=== PATIENT | female | born 1985 | race Caucasian/White ===

== ENCOUNTER 2017-03-29 16:30 | Emergency (ER) | payer BC ==
[2017-03-29] MEDS ORDERED: Tetan/Diph/Pertus SYR(Tdap)* 0.5 ML SYR(BOOSTRIX) use SYR IM ONE (17:41)
[2017-03-29] MEDS ORDERED: Lidocaine 2% PF * 5 ML VIAL INJ ONE (17:41)
[2017-03-29 18:38] VITALS: BP 129/93
--- NOTE | 2017-03-29 18:45 | UC ---
Skin Complaint HPI - HPI Summary HPI Summary: WAS TREATING HER DECK LAST NIGHT AND SUSTAINED A SPLINTER UNDER HER LEFT 3RD FINGER NAIL. UNKNOWN DATE OF LAST TETANUS. - History of Current Complaint Chief Complaint: [facility] Time Seen by Provider: 03/29/17 17:35 Stated Complaint: SOFT TISSUE Hx Obtained From: Patient Hx Last Menstrual Period: 4 WEEKS AGO Onset/Duration: Sudden Onset, Lasting Hours, Still Present Timing: Constant Onset Severity: Moderate Current Severity: Moderate Pain Intensity: 4 Pain Scale Used: 0-10 Numeric Location: Discrete - UNDER LEFT 3RD FINGER NAIL Character: Pain Aggravating Factor(s): Touch Alleviating Factor(s): Nothing Associated Signs & Symptoms: Positive: Tenderness - Allergy/Home Medications Allergies/Adverse Reactions: Allergies Allergy/AdvReac Type Severity Reaction Status Date / Time No Known Allergies Allergy Verified 03/29/17 16:35 Home Medications: Home Medications Control* 1 tab PO DAILY 03/29/17 [History Confirmed 03/29/17] Ibuprofen TAB* [Advil TAB*] 200 mg PO ONCE PRN 03/29/17 [History Confirmed 03/29] Review of Systems Constitutional: Negative Skin: Other - SPLINTER Respiratory: Negative Cardiovascular: Negative Gastrointestinal: Negative All Other Systems Reviewed And Are Negative: Yes PMH/Surg Hx/FS Hx/Imm Hx Previously Healthy: Yes - Surgical History Surgical History: Yes Surgery Procedure, Year, and Place: WISDOM TEETH - Family History Known Family History: Positive: Hypertension - Social History Alcohol Use: Occasionally Substance Use Type: None Smoking Status (MU): Never Smoked Tobacco - Immunization History Most Recent Tetanus Shot: UNKNOWN Physical Exam Triage Information Reviewed: Yes Appearance: Well-Appearing, No Pain Distress, Well-Nourished Vital Signs: Initial Vital Signs Temp 98 F 03/29/17 16:31 Pulse 72 03/29/17 16:31 Resp 16 03/29/17 16:31 BP 114/77 03/29/17 16:31 Pulse Ox 100 03/29/17 16:31 Vital Signs Reviewed: Yes Eyes: Positive: Conjunctiva Clear ENT: Positive: Hearing grossly normal Neck: Positive: Supple Respiratory: Positive: No respiratory distress, No accessory muscle use Cardiovascular: Positive: Pulses Normal Abdomen Description: Positive: Soft Musculoskeletal: Positive: No Edema Neurological: Positive: Alert Psychological: Positive: Age Appropriate Behavior Skin: Positive: Other - 1CM SPLINTER UNDER NAIL LEFT 3RD FINGER Course/Dx - Course Course Of Treatment: DIGITAL BLOCK PERFORMED USING 2% LIDOCAINE. SPLINTER SUCCESSFULLY REMOVED IN ENTIRETY USING 11 BLADE AND SPLINTER FORCEPS. - Diagnoses Provider Diagnoses: SUBUNGUAL SPLINTER REMOVAL - LEFT 3RD FINGER Discharge - Discharge Plan Condition: Stable Disposition: HOME Prescriptions: Cephalexin CAP* [Keflex 500 CAP*] 1,000 mg PO BID #20 cap Patient Education Materials: Soft Tissue Foreign Body (ED) Referrals: Zonia Mckeon MD [Primary Care Provider] - If Needed Additional Instructions: SPLINTER REMOVED WITHOUT DIFFICULTY. TAKE ANTIBIOTICS TO PREVENT INFECTION. SEEK FOLLOW-UP IF YOU DEVELOP SPREADING REDNESS OF THE SKIN, PURULENT DRAINAGE, FEVER, INCREASED PAIN OR ANY OTHER CONCERNING SYMPTOMS. TETANUS IMMUNIZATION GIVEN (TDAP): You have been given an immunization against tetanus. Please record this in your records. In general, a booster is needed only once every 10 years. The tetanus shot protects against tetanus or "lockjaw," which is a complication of certain wound infections (the tetanus shot cannot protect against the actual infection). The immunization site may become warm and red due to local reaction. If this occurs, apply warm compresses and take aspirin or ibuprofen to reduce inflammation and discomfort. Return for evaluation if the reaction becomes severe.
== END 2017-03-29 18:45 | disposition home or self-care (01) ==
LOC: UCEAST 16:30
DX: S60.453A Superficial foreign body of left middle finger, initial encounter (principal); W45.8XXA Other foreign body or object entering through skin, initial encounter; Y93.89 Activity, other specified; Y92.008 Other place in unspecified non-institutional (private) residence as the place of occurrence of the external cause; Z23 Encounter for immunization
CPT/HCPCS: 90471; 90715; 99202; G0463

== ENCOUNTER 2022-04-06 10:11 | Inpatient (IN) ==
[2022-04-06] MEDS ORDERED: Lactated Ringers 1000 ml BAG 1,000 ML IV ONE (10:48)
[2022-04-06] MEDS ORDERED: Buffered Lidocaine 1% SYRIN 1 ml INTRADERM ONE (10:48)
[2022-04-06] MEDS ORDERED: miSOPROStol 100 mcg TAB VAGINAL ONE (11:29)
[2022-04-06 12:38] LABS: Urine Benzodiazepine Screen None Detected (None Detect); Urine Cannabinoids Screen None Detected (None Detect); Urine Opiates Screen None Detected (None Detect)
[2022-04-06] MEDS ORDERED: Oxytocin in LR 20,000 MILLI.UNIT/1,000 ML BAG IV SCH (17:15)
[2022-04-06] MEDS: Lactated Ringers 1000 ml BAG 1,000 ML IV SCH (17:31)
[2022-04-06 18:04] LABS: ABS Eosinophils 0.1 10^3/ul (0-0.6); ABS Lymphocytes 2.1 10^3/ul (1.0-4.8); ABS Monocytes 0.5 10^3/ul (0-0.8); ABS Neutrophils 6.3 10^3/ul (1.5-7.7); Eosinophil % 0.9 %; Hematocrit 35 % (35-47); Hemoglobin 11.9 g/dL (12.0-16.0); Lymphocyte % 23.2 %; Mean Corpuscular HGB Conc 34 g/dL (31-36); Mean Corpuscular Hemoglobin 30 pg (27-31); Mean Corpuscular Volume 87 fL (80-97); Mean Platelet Volume 7.7 fL (7.4-10.4); Nucleated Red Blood Cells % 0.1; Platelet Count 209 10^3/uL (150-450); Red Blood Count 4.01 10^6 /uL (3.70-4.87); Red Cell Distribution Width 15 % (10-15); White Blood Count 9.1 10^3/uL (3.5-10.8)
[2022-04-07] MEDS: Lactated Ringers 1000 ml BAG 1,000 ML IV SCH ×2 (01:50→05:01)
[2022-04-07] MEDS ORDERED: OBEPIDURAL (200 ML) 200 ML EPIDURAL ONE (04:13)
[2022-04-07] MEDS ORDERED: Lidocaine 1% w EPI 1:200,000 SDV 30 ML VIAL ONE ×2 (04:13→18:14)
[2022-04-07 05:42] LABS: Urine Appearance Cloudy; Urine Bilirubin Negative (Negative); Urine Blood 2+ (Negative); Urine Color Yellow; Urine Glucose Negative (Negative); Urine Ketones Trace (Negative); Urine Nitrite Negative (Negative); Urine Protein 1+(30 mg/dL) (Negative); Urine Specific Gravity 1.023 (1.002-1.030); Urine Urobilinogen Negative (Negative)
[2022-04-07] MEDS ORDERED: fentaNYL 100 mcg/2 ml 50 MCG/ML VIAL ONE (05:42)
[2022-04-07] MEDS ORDERED: Lidocaine 2% w/ EPI 1:200,000 MPF 20 ML SDV VIAL ONE (05:42)
[2022-04-07] MEDS ORDERED: Sodium Citrate/Citric Acid LIQ 15 ML UDC PO PRN (05:54)
[2022-04-07] MEDS ORDERED: Lactated Ringers 1000 ml BAG 1,000 ML IV ONE (05:54)
[2022-04-07] MEDS ORDERED: Lactated Ringers 1000 ml BAG 500 ML IV PRN (05:54)
[2022-04-07] MEDS ORDERED: Phenylephrine 40 mcg/mL 10mL (400mcg) SYRINGE IV PUSH PRN ×2 (05:54)
[2022-04-07] MEDS ORDERED: OBEPIDURAL (200 ML) 200 ML EPIDURAL SCH (06:00)
[2022-04-07] MEDS ORDERED: Lactated Ringers 1000 ml BAG 1,000 ML IV SCH ×3 (06:00→15:00)
[2022-04-07 06:10] LABS: Urine Bacteria Absent (Absent); Urine Red Blood Cell 3+(>10/hpf) (Absent); Urine Squamous Epithelial Cell Present (Absent); Urine White Blood Cell 2+(11-20/hpf) (Absent)
[2022-04-07] MEDS ORDERED: Glycerin ADULT 2.4 gm SUPP PR PRN (14:39)
[2022-04-07] MEDS ORDERED: Oxytocin in LR 20,000 MILLI.UNIT/1,000 ML BAG IV SCH (14:45)
[2022-04-07] MEDS: Dibucaine 1% OINT 28.35 GM TUBE PR PRN (17:31)
[2022-04-07] MEDS: Witch Hazel PAD JAR TOPICAL PRN (17:31)
[2022-04-08] MEDS: Witch Hazel PAD JAR TOPICAL PRN (03:15)
[2022-04-08] MEDS: Dibucaine 1% OINT 28.35 GM TUBE PR PRN (03:15)
[2022-04-08 06:36] LABS: ABS Eosinophils 0.1 10^3/ul (0-0.6); ABS Lymphocytes 2.3 10^3/ul (1.0-4.8); ABS Monocytes 0.9 10^3/ul (0-0.8); ABS Neutrophils 13.1 10^3/ul (1.5-7.7); Eosinophil % 0.3 %; Hematocrit 27 % (35-47); Hemoglobin 9.6 g/dL (12.0-16.0); Lymphocyte % 14.2 %; Mean Corpuscular HGB Conc 36 g/dL (31-36); Mean Corpuscular Hemoglobin 31 pg (27-31); Mean Corpuscular Volume 87 fL (80-97); Mean Platelet Volume 7.7 fL (7.4-10.4); Platelet Count 184 10^3/uL (150-450); Red Cell Distribution Width 15 % (10-15); White Blood Count 16.4 10^3/uL (3.5-10.8)
[2022-04-09 09:27] VITALS: BP 131/87
== END 2022-04-09 15:35 | disposition home or self-care (01) | DRG 542 ==
LOC: MCHOBOUT 10:11 → MCHOB 11:35
PROVIDERS: ADMIT Midwife; ATTEND Midwife

== ENCOUNTER 2023-11-11 13:07 | Inpatient (IN) ==
[2023-11-11] MEDS ORDERED: Lidocaine 1% VIAL 10 MG/ML 30 ML VIAL INJ PRN (14:00)
[2023-11-11] MEDS ORDERED: Buffered Lidocaine 1% SYRIN 1 ml INTRADERM ONE (14:00)
[2023-11-11] MEDS ORDERED: Prochlorperazine 5 mg/ml 2 ml VIAL (10 mg) IV PRN (14:00)
[2023-11-11] MEDS: miSOPROStol 100 mcg TAB PO ONE (14:17)
[2023-11-11 15:02] LABS: Hematocrit 34.6 % (35-45); Hemoglobin 12.1 g/dL (11.5-14.3); Mean Corpuscular Hemoglobin 30.7 pg (27-33); Mean Corpuscular Hgb Conc 34.8 g/dL (31-36); Mean Corpuscular Volume 88.4 fL (80-97); Mean Platelet Volume 7.7 fL (7.5-11.2); Platelet Count 279 10^3/uL (150-450); Red Blood Count 3.92 10^6/uL (3.63-4.92); Red Cell Distribution Width 13.4 % (12-17)
[2023-11-11 15:32] LABS: Urine Benzodiazepine Screen None Detected (None Detect); Urine Opiates Screen None Detected (None Detect)
[2023-11-11 15:38] LABS: ABS Basophils 0.1 10^3/uL (0.0-0.1); ABS Eosinophils 0.1 10^3/uL (0.0-0.5); ABS Lymphocytes 2.2 10^3/uL (1.0-4.8); ABS Monocytes 0.7 10^3/uL (0.0-0.9); ABS Neutrophils 7.9 10^3/uL (1.5-7.6); Eosinophil % 1.1 %; Lymphocyte % 20.1 %
[2023-11-11] MEDS: Lactated Ringers 1000 ml BAG 1,000 ML IV SCH (19:07)
[2023-11-11] MEDS: Oxytocin in LR 20,000 MILLI.UNIT/1,000 ML BAG IV SCH (19:09)
[2023-11-12] MEDS: Lactated Ringers 1000 ml BAG 1,000 ML IV ONE ×2 (00:29→03:32)
[2023-11-12] MEDS: OBEPIDURAL (200 ML) 200 ML EPIDURAL ONE (00:30)
[2023-11-12] MEDS ORDERED: Phenylephrine 40 mcg/mL 10mL (400mcg) SYRINGE IV PUSH PRN ×2 (01:16)
[2023-11-12] MEDS ORDERED: Sodium Citrate/Citric Acid LIQ 15 ML UDC PO PRN (01:16)
[2023-11-12] MEDS ORDERED: Lactated Ringers 1000 ml BAG 1,000 ML IV SCH ×2 (02:00→05:00)
[2023-11-12 02:31] LABS: Urine Appearance Clear; Urine Bilirubin Negative (Negative); Urine Blood Negative (Negative); Urine Color Light-Yellow; Urine Glucose Negative (Negative); Urine Ketones Negative (Negative); Urine Nitrite Negative (Negative); Urine Protein Trace (Negative); Urine Specific Gravity 1.022 (1.002-1.030); Urine Urobilinogen Negative (Negative)
[2023-11-12] MEDS: OBEPIDURAL (200 ML) 200 ML EPIDURAL SCH (03:32)
[2023-11-12] MEDS: Lidocaine/Epinephrin 1.5%/200 5 ML AMP INJ ONE (03:32)
[2023-11-12] MEDS ORDERED: Glycerin ADULT 2.4 gm SUPP PR PRN (04:03)
[2023-11-12] MEDS: Witch Hazel PAD JAR TOPICAL PRN (04:54)
[2023-11-12] MEDS: Dibucaine 1% OINT 28.35 GM TUBE PR PRN (04:54)
[2023-11-13 07:05] LABS: ABS Basophils 0.1 10^3/uL (0.0-0.1); ABS Eosinophils 0.1 10^3/uL (0.0-0.5); ABS Lymphocytes 2.5 10^3/uL (1.0-4.8); ABS Monocytes 0.8 10^3/uL (0.0-0.9); ABS Neutrophils 8.5 10^3/uL (1.5-7.6); Eosinophil % 1.1 %; Hemoglobin 10.6 g/dL (11.5-14.3); Lymphocyte % 20.7 %; Mean Corpuscular Hemoglobin 30.4 pg (27-33); Mean Corpuscular Hgb Conc 34.2 g/dL (31-36); Mean Corpuscular Volume 88.8 fL (80-97); Mean Platelet Volume 7.6 fL (7.5-11.2); Platelet Count 219 10^3/uL (150-450); Red Blood Count 3.48 10^6/uL (3.63-4.92); Red Cell Distribution Width 13.6 % (12-17); White Blood Count 12.1 10^3/uL (3.8-11.8)
[2023-11-13 08:50] VITALS: BP 118/75
== END 2023-11-13 11:35 | disposition home or self-care (01) | DRG 560 ==
LOC: MCHOBOUT 13:07 → MCHOB 14:02
PROVIDERS: ADMIT Registered Nurse